=== PATIENT | female | born 1985 | race Caucasian/White ===

== ENCOUNTER 2018-07-03 18:33 | Emergency (ER) | payer OTHER | END 2018-07-03 19:30 | disposition home or self-care (01) | LOC: ER 19:30 | DX: S93.401A Sprain of unspecified ligament of right ankle, initial encounter (principal); E03.9 Hypothyroidism, unspecified; F31.9 Bipolar disorder, unspecified; Z98.890 Other specified postprocedural states; Z91.040 Latex allergy status; W18.39XA Other fall on same level, initial encounter; X58.XXXA Exposure to other specified factors, initial encounter; Y93.02 Activity, running; Y92.89 Other specified places as the place of occurrence of the external cause; Y99.8 Other external cause status | CPT/HCPCS: 73610; 99284 ==